=== PATIENT | male | born 1975 | race Caucasian/White ===

== ENCOUNTER 2018-10-08 10:07 | Emergency (ER) | payer BC, OTHER ==
[~2018-10-08] VITALS: Ht 162.6 cm; Wt 75.0 kg
[2018-10-08 10:07] VITALS: BP 131/83
[2018-10-08] MEDS ORDERED: DERMABOND TOPICAL SKIN ADHESIVE TOP ONE (11:00)
== END 2018-10-08 11:10 | disposition home or self-care (01) ==
LOC: M ED 10:07
DX: S01.81XA Laceration without foreign body of other part of head, initial encounter (principal); W22.8XXA Striking against or struck by other objects, initial encounter; Y92.89 Other specified places as the place of occurrence of the external cause; Y99.0 Civilian activity done for income or pay

== ENCOUNTER 2019-04-06 10:00 | Emergency (ER) | payer OTHER ==
[~2019-04-06] VITALS: Ht 162.6 cm; Wt 66.4 kg
[2019-04-06] MEDS ORDERED: IBUPROFEN 800 MG TAB PO ONE (12:30)
[2019-04-06 12:46] LABS: HEMATOCRIT 40.9 % (42.0-52.0); HEMOGLOBIN 12.6 g/dl (13.5-17.5); MEAN CORPUSCULAR HEMOGLOBIN 23.8 pg (27.0-33.0); MEAN CORPUSCULAR HGB CONC 30.8 g/dl (32.0-36.5); MEAN CORPUSCULAR VOLUME 77.2 fl (80.0-96.0); PLATELET COUNT, AUTOMATED 367 10^3/uL (150-450); WHITE BLOOD COUNT 10.8 10^3/uL (4.0-10.0)
[2019-04-06 13:13] LABS: BLOOD UREA NITROGEN 11 MG/DL (7-18); CALCIUM LEVEL 8.9 MG/DL (8.5-10.1); CARBON DIOXIDE LEVEL 29 MEQ/L (21-32); CHLORIDE LEVEL 103 MEQ/L (98-107); CREATININE FOR GFR 0.83 MG/DL (0.70-1.30); GLOMERULAR FILTRATION RATE > 60.0 (>60); GLUCOSE, FASTING 95 MG/DL (70-100); POTASSIUM SERUM 4.8 MEQ/L (3.5-5.1); SODIUM LEVEL 138 MEQ/L (136-145)
[2019-04-06] MEDS ORDERED: ISOVUE-370 76% 100ML VIAL (Q9967) As Ordered ONE (13:23)
[2019-04-06 13:41] VITALS: BP 119/79
[2019-04-06] MEDS ORDERED: CLINDAMYCIN 900 MG in APPROPRIATE DILUENT 1 EA IV ONE (14:15)
[2019-04-06] MEDS ORDERED: CLIN300C5 PO (15:29)
[2019-04-06] MEDS ORDERED: DOXY100C37 PO (15:29)
[2019-04-06] MEDS ORDERED: MAGICMW SSP (15:29)
--- NOTE | 2019-04-07 08:10 | REP ---
Maxillofacial CT study with IV contrast: History: Swelling of the face and eye. CT contrast dose: 75 mL of intravenous Isovue 370 is administered. An opaque BB is affixed to the skin at the superior border of the area of interest. CT findings: There is a fairly diffuse pattern of superficial facial and periorbital soft tissue swelling. No mass lesion or abnormal fluid collection is appreciated. There are some slightly prominent mandibular lymph nodes at the angle of the mandible none pathologically enlarged. There is moderate mucosal thickening affecting the left maxillary sinus almost circumferentially. There is mild mucosal thickening in left anterior ethmoid air cells. No intraorbital abnormality is appreciated. Preseptal periorbital soft tissue swelling is noted. No bony destructive lesion is seen. Impression: Periorbital and left facial superficial soft tissue swelling. There are a few reactive left mandibular lymph nodes, none pathologically enlarged. There is no evidence of abscess or abnormal fluid collection. There are multiple carious teeth noted. There is moderate sinusitis affecting the left maxillary and to some degree left anterior ethmoid air cells. Electronically Signed by Luciano Benitez MD 04/07/2019 09:59 A
== END 2019-04-06 15:41 | disposition home or self-care (01) ==
LOC: M ED 10:00
DX: K04.7 Periapical abscess without sinus (principal); K02.9 Dental caries, unspecified; J01.90 Acute sinusitis, unspecified; R22.0 Localized swelling, mass and lump, head; Z88.0 Allergy status to penicillin
CPT/HCPCS: 70487; 80048; 85027; 96365; 99284; Q9967

== ENCOUNTER 2021-07-16 09:50 | Emergency (ER) | payer OTHER ==
[~2021-07-16] VITALS: Ht 165.1 cm; Wt 72.7 kg
[~2021-07-16 09:50] MED LIST: CLIN-250 PO; DOXY-443 PO; MAGICMW SSP
[2021-07-16] MEDS ORDERED: CLINDAMYCIN 600 MG in IV 1 EA IV ONE (13:05)
[2021-07-16] MEDS ORDERED: KETOROLAC 30 MG/ML 1ML VIAL IV ONE (13:05)
[2021-07-16] MEDS ORDERED: LevoFLOXacin 750 MG TABLET PO ONE (13:05)
[2021-07-16 13:20] LABS: BASO % 0.5 % (0.0-1.0); EOS # 0.1 10^3/uL (0.0-0.5); EOS % 0.8 % (0.0-3.0); HEMATOCRIT 38.9 % (42.0-52.0); HEMOGLOBIN 12.1 g/dl (13.5-17.5); LYMPH # 0.9 10^3/uL (1.5-5.0); LYMPH % 10.6 % (24.0-44.0); MEAN CORPUSCULAR HEMOGLOBIN 23.9 pg (27.0-33.0); MEAN CORPUSCULAR HGB CONC 31.1 g/dl (32.0-36.5); MEAN CORPUSCULAR VOLUME 76.7 fl (80.0-96.0); MONO % 11.7 % (2.0-8.0); NEUTROPHILS # 6.6 10^3/uL (1.5-8.5); NEUTROPHILS % 76.1 % (36.0-66.0); PLATELET COUNT, AUTOMATED 317 10^3/uL (150-450); RED BLOOD COUNT 5.07 10^6/uL (4.30-6.10); WHITE BLOOD COUNT 8.7 10^3/uL (4.0-10.0)
[2021-07-16 13:41] LABS: BLOOD UREA NITROGEN 6 MG/DL (7-18); CALCIUM LEVEL 8.6 MG/DL (8.5-10.1); CARBON DIOXIDE LEVEL 29 MEQ/L (21-32); CHLORIDE LEVEL 103 MEQ/L (98-107); CREATININE FOR GFR 0.67 MG/DL (0.70-1.30); GLOMERULAR FILTRATION RATE > 60.0 (>60); GLUCOSE, FASTING 96 MG/DL (70-100); POTASSIUM SERUM 4.8 MEQ/L (3.5-5.1); SODIUM LEVEL 137 MEQ/L (136-145)
[2021-07-16] MEDS ORDERED: ISOVUE-370 76% 100ML VIAL As Ordered ONE (13:51)
[2021-07-16] MEDS ORDERED: LEVO750T14 PO (15:37)
[2021-07-16] MEDS ORDERED: CLIN150C17 PO (15:37)
[2021-07-16 15:56] VITALS: BP 126/90
== END 2021-07-16 15:59 | disposition left against medical advice (07) ==
LOC: M ED 09:50
DX: K04.7 Periapical abscess without sinus (principal); K08.89 Other specified disorders of teeth and supporting structures; Z53.9 Procedure and treatment not carried out, unspecified reason; Z88.0 Allergy status to penicillin
CPT/HCPCS: 36415; 70487; 80048; 85025; 96361; 96375; 99284; J1885; Q9967